=== PATIENT | female | born 1995 | race Caucasian/White ===

== ENCOUNTER 2017-07-29 18:28 | Emergency (ER) | payer MEDICAID ==
[~2017-07-29] VITALS: Ht 154.9 cm; Wt 82.6 kg
[~2017-07-29 18:28] MED LIST: CALC500C17 PO; PREN-385 PO
[2017-07-29 18:43] VITALS: BP 127/72
--- NOTE | 2017-07-29 20:27 | NUR ---
TO ER BED 12
--- NOTE | 2017-07-29 20:30 | NUR ---
PATIENT PRESENTS TO ED WITH HEADACHE, DIZZINESS. MED HX: NONE PT DENIES N/V/D; SKIN IS PINK/WARM/DRY; AAOX4 WITH EVEN AND STEADY GAIT; LUNGS CLEAR BL; HR EVEN AND REGULAR; PT DENIES ANY FEVER, CP, SOB, OR COUGH AT THIS TIME; PATIENT STATES PAIN OF 8/10 AT THIS TIME; VSS; PATIENT POSITIONED FOR COMFORT; HOB ELEVATED; BEDRAILS UP X2; BED DOWN. ER MD MADE AWARE OF PT STATUS.
[2017-07-29 21:30] VITALS: BP 127/72
--- NOTE | 2017-07-29 21:30 | NUR ---
Patient discharged with v/s stable. Written and verbal after care instructions given and explained. Patient alert, oriented and verbalized understanding of instructions. Ambulatory with steady gait. All questions addressed prior to discharge. ID band removed. Patient advised to follow up with PMD. Rx of FIORICET given. Patient educated on indication of medication including possible reaction and side effects. Opportunity to ask questions provided and answered.
== END 2017-07-29 21:30 | disposition home or self-care (01) ==
LOC: MED 18:28
DX: R51 Headache (principal); R20.0 Anesthesia of skin
CPT/HCPCS: 99283

== ENCOUNTER 2018-06-16 11:27 | Emergency (ER) | payer MEDICAID, OTHER ==
[~2018-06-16] VITALS: Ht 165.1 cm; Wt 84.5 kg
[2018-06-16 11:30] VITALS: BP 118/55
[2018-06-16 13:29] LABS: APPEARANCE,URINE HAZY (CLEAR); BILIRUBIN,URINE NEGATIVE (NEGATIVE); BLOOD, URINE NEGATIVE (NEGATIVE); COLOR,URINE YELLOW (YELLOW); LEUKOCYTE ESTERASE ,URINE TRACE (NEGATIVE); NITRITE, URINE NEGATIVE (NEGATIVE); UGLUCOSE NEGATIVE (NEGATIVE)
[2018-06-16 13:32] LABS: RBC,URINE 0-5 (RARE) /HPF (0-5)
[2018-06-16 14:32] VITALS: BP 118/55
== END 2018-06-16 14:33 | disposition home or self-care (01) ==
LOC: MED 11:27
DX: S30.1XXA Contusion of abdominal wall, initial encounter (principal); Z79.899 Other long term (current) drug therapy; V49.9XXA Car occupant (driver) (passenger) injured in unspecified traffic accident, initial encounter; Y93.I9 Activity, other involving external motion; Y92.488 Other paved roadways as the place of occurrence of the external cause; Y99.8 Other external cause status
CPT/HCPCS: 81001; 81025; 87086; 99284

== ENCOUNTER 2018-09-02 18:35 | Emergency (ER) | payer MEDICAID, OTHER ==
[~2018-09-02] VITALS: Ht 154.9 cm; Wt 82.6 kg
[2018-09-02 19:05] VITALS: BP 120/78
--- NOTE | 2018-09-02 20:12 | NUR ---
PT AMBULATED TO ER BED 02
[2018-09-02] MEDS ORDERED: ONDANSETRON 4 MG/2 ML VIAL IVP ONE (20:40)
[2018-09-02] MEDS ORDERED: MORPHINE SULFATE 4 MG/ML SYR IVP ONE (20:40)
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
--- NOTE | 2018-09-02 20:50 | NUR ---
PT DENIES ALCOHOL/SUBSTANCE ABUSE PRIOR TO EPISODE
[2018-09-02 20:55] LABS: BASOPHILS # (AUTO) 0.1 K/uL (0.00-0.22); BASOPHILS % (AUTO) 0.6 % (0.0-2.0); EOSINOPHILS # (AUTO) 0.1 K/uL (0-0.4); HEMATOCRIT 39.1 % (36-48); HEMOGLOBIN 12.6 g/dL (12.0-16.0); LYMPHOCYTES # (AUTO) 3.4 K/uL (2.5-16.5); LYMPHOCYTES % (AUTO) 26.6 % (20.5-51.1); MEAN CORPUSCULAR HEMOGLOBIN 26 pg (27-31); MEAN CORPUSCULAR HGB CONC 32 g/dL (33-37); MEAN CORPUSCULAR VOLUME 80.9 fL (80-94); MONOCYTES # (AUTO) 0.7 K/uL (0.8-1.0); MONOCYTES % (AUTO) 5.1 % (1.7-9.3); NEUTROPHILS # (AUTO) 8.5 K/uL (1.8-7.7); NEUTROPHILS % (AUTO) 66.7 % (42.2-75.2); PLATELET COUNT (AUTO) 311 K/uL (140-450); RED BLOOD CELL COUNT(AUTO) 4.84 MIL/uL (4.20-5.40); RED CELL DISTRIBUTION WIDTH 14.5 % (11.6-13.7); WHITE BLOOD COUNT (AUTO) 12.8 K/uL (4.8-10.8)
--- NOTE | 2018-09-02 21:02 | NUR ---
SLOW PUSH ON MORPHINE. MIXED IN 8ML NS. GAVE 4ML. PER PT REQUEST. STOPPED PUSH. DISCARDED REMAINING MEDICATION. WITNESSED BY JOSELUIS SOTO. VSS. CONTINUE TO MONITOR.
[2018-09-02 21:07] LABS: ANION GAP 12.5 (8-16); CARBON DIOXIDE 27.3 mmol/L (21-32); CHLORIDE 102 mmol/L (98-107); CREATININE 0.8 mg/dL (0.6-1.3); GFR ARICAN-AMERICAN 115 mL/min (>90); GLUCOSE 92 mg/dL (74-106); POTASSIUM 3.8 mmol/L (3.5-5.1); SODIUM SERUM 138 mmol/L (136-145); UREA NITROGEN, BLOOD 9 mg/dL (7-18)
[2018-09-02 21:13] LABS: ALBUMIN 3.3 g/dL (3.4-5.0); ASPARTATE AMINOTRANSFERASE 16 U/L (15-37); TOTAL BILIRUBIN 0.2 mg/dL (0.0-1.0)
[2018-09-02 21:25] LABS: APPEARANCE,URINE CLEAR (CLEAR); BILIRUBIN,URINE NEGATIVE (NEGATIVE); BLOOD, URINE NEGATIVE (NEGATIVE); COLOR,URINE YELLOW (YELLOW); LEUKOCYTE ESTERASE ,URINE 1+ (NEGATIVE); NITRITE, URINE NEGATIVE (NEGATIVE); PH,URINE 7.5 (5.0-9.0); UGLUCOSE NEGATIVE (NEGATIVE)
[2018-09-02 21:38] LABS: BARBITURATE, URINE NEG. ng/ml (NEG <=200); BENZODIAZEPINE, URINE NEG. ng/mL (NEG <=200); CANNABINOID, URINE NEG. ng/mL (NEG <=50); COCAINE, URINE NEG. ng/mL (NEG <=300); OPIATE, URINE NEG. ng/mL (NEG <=2000); PHENCYCLIDINE SCREEN,URINE NEG. ng/mL (NEG <=25)
--- NOTE | 2018-09-02 21:43 | NUR ---
PT LAYING IN BED, FAMILY/FRIEND AT BEDSIDE. PT DENIES PAIN AT THIS TIME AFTER MED. VSS, RR EVEN AND UNLABORED. ALL NEEDS MET.
[2018-09-02 21:44] LABS: RBC,URINE 0-5 /HPF (0-5); WBC,URINE 0-5 /HPF (0-5)
--- NOTE | 2018-09-03 00:05 | NUR ---
PT LAYING IN BED, VSS, RR EVEN AND UNLABORED. ALL NEEDS MET.
[2018-09-03 00:15] VITALS: BP 108/79
== END 2018-09-03 00:15 | disposition home or self-care (01) ==
LOC: MED 18:35
DX: N39.0 Urinary tract infection, site not specified (principal); F07.81 Postconcussional syndrome; Z79.899 Other long term (current) drug therapy
CPT/HCPCS: 36415; 70450; 71045; 80053; 80305; 81001; 81025; 84484; 85025; 87086; 93005; 96374; 96375; 99284; G0482; J2270; J2405; Q0092

== ENCOUNTER 2021-10-24 21:54 | Emergency (ER) | payer MEDICAID ==
[~2021-10-24] VITALS: Ht 160 cm; Wt 84.9 kg
[2021-10-24 22:02] VITALS: BP 100/69
--- NOTE | 2021-10-24 22:06 | NUR ---
PT TAKEN TO LOBBY WAITING FOR BED.
--- NOTE | 2021-10-24 22:44 | NUR ---
patient ambulatory to bed 5
[2021-10-24] MEDS ORDERED: LIDOCAINE 5% 1 EA PATCH TP SCH (23:35)
[2021-10-24] MEDS ORDERED: ACETAMINOPHEN EXTRA STRENGTH 500 MG TAB PO ONE (23:35)
--- NOTE | 2021-10-25 00:01 | NUR ---
26 YO F BIB SELF FOR BACK PAIN X TODAY FROM FALL. PT LOST BALANCE FROM WASHING SON. PT DENIES HITTING HEAD/ BLACKING OUT. PT HAD REDNESS AND NUMBNESS AND TINGLING. PT FELL DIRECTLY ON BACK AND DID NOT HIT ANYTHING ELSE. 9/10 PAIN DID NOT TAKE ANY PAIN MEDS AT HOME PMH : NONE ALLERGIES: NONE RX: NONE
--- NOTE | 2021-10-25 00:01 | NUR ---
Rafal gupta in [facility] - 10/25/21 at 0001 by JADEJN SaudT Y
--- NOTE | 2021-10-25 01:15 | NUR ---
Patient appears to be resting comfortably in bed. Vital Signs within normal limits. Respirations even and unlabored. PARTNER AT BEDSIDE. UPDATED PT WE ARE WAITNG ON XRAY RESULTS
[2021-10-25] MEDS ORDERED: IBUP-2213 PO (02:25)
[2021-10-25] MEDS ORDERED: LID5T TP (02:25)
[2021-10-25] MEDS ORDERED: ACET-10509 PO (02:25)
[2021-10-25 02:31] VITALS: BP 110/72
--- NOTE | 2021-10-25 02:31 | NUR ---
Patient discharged with v/s stable. Written and verbal after care instructions given and explained. Patient alert, oriented and verbalized understanding of instructions. Ambulatory with steady gait. All questions addressed prior to discharge. ID band removed. Patient advised to follow up with PMD. Rx of TYLENOL, IBUPROFEN, LIDOCAINE PATCH given. Opportunity to ask questions provided and answered.
--- NOTE | 2021-10-25 03:03 | NUR ---
The patient's care was reviewed and supervised by Gunjan Whelan RN.
== END 2021-10-25 02:31 | disposition home or self-care (01) ==
LOC: MED 21:54
DX: S20.229A Contusion of unspecified back wall of thorax, initial encounter (principal); Z79.899 Other long term (current) drug therapy; Z79.1 Long term (current) use of non-steroidal anti-inflammatories (NSAID); Z88.5 Allergy status to narcotic agent; W18.39XA Other fall on same level, initial encounter; Y92.002 Bathroom of unspecified non-institutional (private) residence as the place of occurrence of the external cause; Y93.89 Activity, other specified; Y99.8 Other external cause status
CPT/HCPCS: 72072; 99285